=== PATIENT | female | born 1970 | race Hispanic/Latino ===

== ENCOUNTER 2018-10-05 09:08 | Emergency (ER) | payer SELFPAY ==
[2018-10-05 09:48] LABS: Basophils % (Auto) 0.9 % (0.0-1.8); Eosinophils # (Auto) 0.1 K/mm3 (0.0-0.4); Eosinophils % (Auto) 2.3 % (0.0-4.3); Hematocrit 38.4 % (30.3-42.9); Hemoglobin 13.1 gm/dl (10.1-14.3); Lymphocytes # (Auto) 1.2 K/mm3 (1.2-5.4); Lymphocytes % (Auto) 28.4 % (13.4-35.0); Mean Corpuscular HGB Conc 34 % (30-34); Mean Corpuscular Volume 100 fl (79-97); Monocytes # (Auto) 0.3 K/mm3 (0.0-0.8); Monocytes % (Auto) 6.1 % (0.0-7.3); Platelet Count 205 K/mm3 (140-440); Red Blood Count 3.86 M/mm3 (3.65-5.03); Red Cell Distribution Width 12.5 % (13.2-15.2)
[2018-10-05 10:08] LABS: BUN/Creatinine Ratio 15; Blood Urea Nitrogen 9 mg/dL (7-17); Hemolysis Index 5
--- NOTE | 2018-10-05 10:36 | Emergency Department Report ---
ED Psych HPI - General Chief Complaint: Psych Stated Complaint: SI Time Seen by Provider: 10/05/18 10:15 Source: patient Mode of arrival: Ambulatory Limitations: No Limitations - History of Present Illness Initial Comments: Patient is a 48-year-old female that presents emergency room with complaints of suicidal ideations. Patient complaining of depression as well. Patient states she drinks every day for the past year but has been clean for 3 days. Patient states she is having suicidal thoughts and her plan is to go into a [place] and drown or be attacked by poisonous snakes. Patient states that she's been going through a lot of stress with her family. Patient denies homicidal ideations. Based denies hallucinations. Her thoughts have been going on for one year but are worsening. MD Complaint: suicidal ideation, feels depressed -: Sudden Associated Psychiatric Symptoms: depression, suicidal ideation History of same: Yes Quality: constant, getting worse Improves With: none Worsens With: achohol Context: recent alcohol abuse, significant life stressor Associated Symptoms: denies: confusion, headache, shortness of breath, nausea, vomiting, syncope, insomnia Treatments Prior to Arrival: none If Self Harm: admits thoughts of, has plan - Related Data Allergies Allergy/AdvReac Type Severity Reaction Status Date / Time No Known Allergies Allergy Unverified 10/05/18 09:15 ED Review of Systems ROS: Stated complaint: SI Other details as noted in HPI Constitutional: denies: chills, fever Eyes: denies: eye pain, eye discharge, vision change ENT: denies: ear pain, throat pain Respiratory: denies: cough, shortness of breath, wheezing Cardiovascular: denies: chest pain, palpitations Endocrine: no symptoms reported Gastrointestinal: denies: abdominal pain, nausea, diarrhea Genitourinary: denies: urgency, dysuria, discharge Musculoskeletal: denies: back pain, joint swelling, arthralgia Skin: denies: rash, lesions Neurological: denies: headache, weakness, paresthesias Psychiatric: anxiety, depression, suicidal thoughts. denies: auditory hallucinations, visual hallucinations, homicidal thoughts Hematological/Lymphatic: denies: easy bleeding, easy bruising ED Past Medical Hx - Past Medical History Previous Medical History?: Yes Additional medical history: manic depression - Surgical History Past Surgical History?: Yes Additional Surgical History: hysterectomy - Family History Family history: no significant - Social History Smoking Status: Current Every Day Smoker Substance Use Type: Alcohol, Marijuana ED Physical Exam - General Limitations: No Limitations General appearance: alert, in no apparent distress - Head Head exam: Present: atraumatic, normocephalic - Eye Eye exam: Present: normal appearance - ENT ENT exam: Present: mucous membranes moist - Neck Neck exam: Present: normal inspection - Respiratory Respiratory exam: Present: normal lung sounds bilaterally. Absent: respiratory distress - Cardiovascular Cardiovascular Exam: Present: regular rate, normal rhythm. Absent: systolic murmur, diastolic murmur, rubs, gallop - GI/Abdominal GI/Abdominal exam: Present: soft, normal bowel sounds - Extremities Exam Extremities exam: Present: normal inspection - Back Exam Back exam: Present: normal inspection - Neurological Exam Neurological exam: Present: alert, oriented X3 - Psychiatric Psychiatric exam: Present: depressed, suicidal ideation - Skin Skin exam: Present: warm, dry, intact, normal color. Absent: rash ED Course Vital Signs 10/05/18 09:24 Temperature 99 F Pulse Rate 78 Respiratory 19 Rate Blood Pressure 144/77 [Left] O2 Sat by Pulse 99 Oximetry - Reevaluation(s) Reevaluation #1: Initial evaluation done. Patient is suicidal with a plan. Patient was placed on a 1013. Patient's labs have been drawn. 10/05/18 10:33 Patient's labs are unremarkable. Patient is medically clear. Patient will remain in the ER and a 1013 in the ER hold until accepted into appropriate psychiatric facility. Discussed all results with patient. Patient will be made in ER at 1013. patient agrees to plan of care. 10/05/18 11:48 ED Medical Decision Making - Lab Data Result diagrams: 10/05/18 09:37 10/05/18 09:37 - Medical Decision Making Patient is a 48-year-old female that presents emergency was suicidal ideation with plan. Patient placed on 1013. Patient's labs unremarkable. Patient medically clear. Patient will meet with psychiatry. - Differential Diagnosis suicidal ideations. Suicidal ideations depression. Critical care attestation.: If time is entered above; I have spent that time in minutes in the direct care of this critically ill patient, excluding procedure time. ED Disposition Clinical Impression: Suicidal ideation, Alcohol abuse Depressed Qualifiers: Depression Type: unspecified Qualified Code(s): F32.9 - Major depressive disorder, single episode, unspecified Disposition: [id number]/[id number] PSY HOSP/PSY UNIT Is pt being admited?: No Does the pt Need Aspirin: No Condition: Stable Referrals: DARIO AG MD [Primary Care Provider] - 3-5 Days Time of Disposition: 11:49
[2018-10-05 10:50] LABS: Amorphous Crystals,Urine Few; Bilirubin,Urine NEG (Negative); Blood,Urine NEG (Negative); Color,Urine Yellow (Yellow); Mucus,Urine 2+ /HPF; Protein,Urine <15 mg/dL mg/dL (Negative); Urobilinogen,Urine < 2.0 mg/dL (<2.0)
[2018-10-05 10:51] LABS: HCG Qualitative,Urine Negative (Negative)
[2018-10-05 10:56] LABS: Amphetamine Screen,Urine PRESUMPTIVE NEGATIVE; Benzodiazepines Screen,Urine PRESUMPTIVE NEGATIVE; Cocaine Screen,Urine PRESUMPTIVE NEGATIVE; Methadone Screen,Urine PRESUMPTIVE NEGATIVE; Opiate Screen,Urine PRESUMPTIVE NEGATIVE
[2018-10-05 11:12] LABS: Cannabinoid Screen,Urine PRESUMPTIVE POSITIVE
--- NOTE | 2018-10-06 16:59 | Consultation ---
History of Present Illness - Reason for Consult Consult date: 10/06/18 Reason for consult: Initial Psychiatric Evaluation - History of Present Psychiatric Illness Patient not seen. Patient accepted to [facility] by a psychiatrist. Medications and Allergies Allergies Allergy/AdvReac Type Severity Reaction Status Date / Time No Known Allergies Allergy Unverified 10/05/18 09:15 Mental Status Exam - Vital signs Last Vital Signs Temp 98.8 F 10/06/18 15:15 Pulse 56 L 10/06/18 15:15 Resp 18 10/06/18 15:15 BP 125/75 10/06/18 15:15 Pulse Ox 99 10/06/18 15:15 Results Result Diagrams: 10/05/18 09:37 10/05/18 09:37 All other labs normal.
[2018-10-06 20:12] VITALS: BP 105/67
== END 2018-10-06 20:40 ==
LOC: EEVIPCON 09:08 → ED 09:08
DX: F32.9 Major depressive disorder, single episode, unspecified (principal); F10.10 Alcohol abuse, uncomplicated; F17.200 Nicotine dependence, unspecified, uncomplicated; F12.10 Cannabis abuse, uncomplicated; F41.9 Anxiety disorder, unspecified; Z90.710 Acquired absence of both cervix and uterus
CPT/HCPCS: 36415; 80048; 80307; 81001; 81025; 84443; 85025; 99285; G0480; 80320